=== PATIENT | female | born 1960 | race Caucasian/White ===

== ENCOUNTER 2019-07-31 19:13 | Inpatient (IN) | payer MEDICAID, OTHER ==
[~2019-07-31] VITALS: Ht 172.7 cm; Wt 72.8 kg
[2019-07-31 20:15] LABS: Basophils # (auto) 0.1 uL; Basophils % (auto) 0.7 % (0.0-2.0); Eosinophils # (auto) 0.1 uL; Eosinophils % (auto) 0.8 % (0.0-7.0); Hematocrit 49.7 % (36.0-46.0); Hemoglobin 16.7 g/dL (12.2-16.2); Lymphocytes # (auto) 2.1 uL; Lymphocytes % (auto) 13.7 % (10.0-50.0); Mean Corpuscular Hemoglobin 34.1 pg (28.0-32.0); Mean Corpuscular Hgb Conc. 33.5 g/dL (32.0-36.0); Mean Corpuscular Volume 101.9 fL (80.0-100.0); Monocytes # (auto) 1.4 uL; Monocytes % (auto) 9.2 % (0.0-12.0); Neutrophils # (auto) 11.5 uL; Neutrophils % (auto) 75.6 % (37.0-80.0); Platelet Count (auto) 173 10^3/uL (140-450); Red Blood Cells 4.88 10^6/uL (4.0-5.20); Red Cell Distribution Width 13.1 % (11.8-14.3); White Blood Cell 15.3 10^3/uL (4.4-10.8)
[2019-07-31 20:32] LABS: Albumin 4.2 g/dL (3.4-5.0); Calcium 9.1 mg/dL (8.5-10.1); INR 0.96 (0.9-1.15); Partial Thromboplastin Time 28.5 sec (23.64-32.05); Potassium 3.9 mmol/L (3.5-5.1)
[2019-07-31 20:35] LABS: BUN/Creatinine Ratio 11.3; Bilirubin, Total 0.5 mg/dL (0.2-1.0); Total Protein 8.2 g/dL (6.4-8.2)
[2019-08-01] MEDS ORDERED: cefTRIAXone 1GM/50ML D5W 50 ML IV ONE (01:30)
[2019-08-01] MEDS ORDERED: ONDANSETRON HCL 4 MG/2 ML VIAL IV ONE (01:30)
[2019-08-01] MEDS ORDERED: SODIUM CHLORIDE 0.9% 1,000 ML IV ONE (01:30)
[2019-08-01] MEDS ORDERED: metroNIDAZOLE 500MG/100ML 100 ML IV ONE (01:30)
[2019-08-01] MEDS ORDERED: ACETAMINOPHEN 325 MG TAB PO PRN (01:45)
[2019-08-01] MEDS ORDERED: DOCUSATE SOD 100 MG CAP PO PRN (01:45)
[2019-08-01] MEDS ORDERED: HYDROcodone-ACET 5/325MG TAB PO PRN (01:45)
[2019-08-01] MEDS ORDERED: MORPHINE SULFATE 4 MG/ML SYR/VIAL IV ONE (03:15)
[2019-08-01] MEDS: SODIUM CHLORIDE 0.9% 1,000 ML IV SCH ×2 (03:46→17:19)
[2019-08-01] MEDS ORDERED: MET25T PO (06:25)
[2019-08-01] MEDS ORDERED: ONDA-155 PO (06:25)
[2019-08-01] MEDS ORDERED: DICY10CA12 PO (06:53)
[2019-08-01] MEDS ORDERED: BACLOFEN 10 MG TAB PO PRN (07:00)
[2019-08-01] MEDS ORDERED: LACTULOSE 20Gm/30ML SOLN PO PRN (08:45)
[2019-08-01 09:00] VITALS: BP 123/75
[2019-08-01] MEDS: HYOSCYAMINE SULF 0.125 MG ODT TAB PO PRN ×2 (09:46→14:32)
[2019-08-01] MEDS: HYDROmorphone HCL 2 MG/ML VL IV PRN ×3 (09:48→22:07)
[2019-08-01] MEDS ORDERED: LEVOFLOXACIN 500 MG TAB PO ONE (14:00)
[2019-08-01] MEDS: metroNIDAZOLE 500 MG TAB PO SCH ×2 (14:30→22:01)
[2019-08-01 14:43] LABS: Basophils # (auto) 0 uL; Eosinophils # (auto) 0.1 uL; Hemoglobin 13.7 g/dL (12.2-16.2); Lymphocytes # (auto) 1.1 uL; Monocytes # (auto) 0.8 uL; Neutrophils # (auto) 7.3 uL; Platelet Count (auto) 129 10^3/uL (140-450)
[2019-08-01 14:45] LABS: Basophils % (auto) 0.4 % (0.0-2.0); Eosinophils % (auto) 0.6 % (0.0-7.0); Hematocrit 41.1 % (36.0-46.0); Lymphocytes % (auto) 11.9 % (10.0-50.0); Mean Corpuscular Hemoglobin 34.1 pg (28.0-32.0); Mean Corpuscular Hgb Conc. 33.4 g/dL (32.0-36.0); Mean Corpuscular Volume 102.2 fL (80.0-100.0); Neutrophils % (auto) 78.1 % (37.0-80.0); Red Blood Cells 4.02 10^6/uL (4.0-5.20); White Blood Cell 9.4 10^3/uL (4.4-10.8)
[2019-08-01 15:04] LABS: BUN/Creatinine Ratio 18.5; Calcium 8.1 mg/dL (8.5-10.1); Potassium 3.9 mmol/L (3.5-5.1)
[2019-08-01 17:00] VITALS: BP 131/84
[2019-08-01 21:00] VITALS: BP 137/95
[2019-08-01] MEDS: FAMOTIDINE 20 MG TAB PO SCH (22:01)
[2019-08-01] MEDS: ONDANSETRON HCL 4 MG/2 ML VIAL IV PRN (22:02)
[2019-08-02] MEDS: ONDANSETRON HCL 4 MG/2 ML VIAL IV PRN ×3 (02:59→21:03)
[2019-08-02] MEDS: HYOSCYAMINE SULF 0.125 MG ODT TAB PO PRN ×2 (02:59→22:04)
[2019-08-02 05:00] VITALS: BP 131/95
[2019-08-02] MEDS: metroNIDAZOLE 500 MG TAB PO SCH ×3 (05:31→21:09)
[2019-08-02 07:20] LABS: Basophils # (auto) 0 uL; Lymphocytes # (auto) 1.2 uL; Monocytes # (auto) 0.7 uL; Nucleated Red Blood Cells % 0.1 %
[2019-08-02 07:23] LABS: Basophils % (auto) 0.2 % (0.0-2.0); Eosinophils # (auto) 0.1 uL; Eosinophils % (auto) 1.6 % (0.0-7.0); Hematocrit 39.2 % (36.0-46.0); Hemoglobin 13.2 g/dL (12.2-16.2); Lymphocytes % (auto) 15.9 % (10.0-50.0); Mean Corpuscular Hemoglobin 34.5 pg (28.0-32.0); Mean Corpuscular Hgb Conc. 33.6 g/dL (32.0-36.0); Mean Corpuscular Volume 102.8 fL (80.0-100.0); Monocytes % (auto) 8.9 % (0.0-12.0); Neutrophils # (auto) 5.5 uL; Neutrophils % (auto) 73.4 % (37.0-80.0); Platelet Count (auto) 123 10^3/uL (140-450); Red Blood Cells 3.81 10^6/uL (4.0-5.20); Red Cell Distribution Width 12.9 % (11.8-14.3); White Blood Cell 7.5 10^3/uL (4.4-10.8)
[2019-08-02 07:24] LABS: BUN/Creatinine Ratio 12.2; Calcium 8.2 mg/dL (8.5-10.1); Magnesium 2.1 mg/dL (1.6-2.6); Potassium 3.8 mmol/L (3.5-5.1)
[2019-08-02 07:35] LABS: Urine Bacteria FEW /hpf (None Seen); Urine Blood Negative /uL (Negative); Urine Specific Gravity 1.007 (1.001-1.035); Urine WBC 1 /hpf (0 - 5)
[2019-08-02] MEDS: LEVOFLOXACIN 500 MG TAB PO SCH (09:23)
[2019-08-02] MEDS: FAMOTIDINE 20 MG TAB PO SCH ×2 (09:23→21:09)
[2019-08-02 09:25] VITALS: BP 121/82
[2019-08-02 12:31] VITALS: BP 139/94
[2019-08-02 17:00] VITALS: BP 133/89
[2019-08-02] MEDS: SODIUM CHLORIDE 0.9% 1,000 ML IV SCH (21:11)
[2019-08-02] MEDS: HYDROmorphone HCL 2 MG/ML VL IV PRN (21:11)
[2019-08-02 21:50] VITALS: BP 151/57
[2019-08-03] MEDS: SODIUM CHLORIDE 0.9% 1,000 ML IV SCH ×2 (03:45→23:22)
[2019-08-03 04:55] VITALS: BP 123/86
[2019-08-03] MEDS: metroNIDAZOLE 500 MG TAB PO SCH ×3 (06:00→21:23)
[2019-08-03 08:15] VITALS: BP 126/85
[2019-08-03] MEDS: FAMOTIDINE 20 MG TAB PO SCH ×2 (09:39→21:23)
[2019-08-03] MEDS: LEVOFLOXACIN 500 MG TAB PO SCH (09:39)
[2019-08-03] MEDS: ONDANSETRON HCL 4 MG/2 ML VIAL IV PRN ×3 (10:43→21:22)
[2019-08-03] MEDS ORDERED: GOLYTELY 4L KIT PO ONE (12:00)
[2019-08-03 12:21] VITALS: BP 149/96
[2019-08-03] MEDS: HYOSCYAMINE SULF 0.125 MG ODT TAB PO PRN ×2 (12:48→17:14)
[2019-08-03 16:48] VITALS: BP 128/83
[2019-08-03 22:00] VITALS: BP 131/96
[2019-08-03] MEDS: HYDROmorphone HCL 2 MG/ML VL IV PRN (23:20)
[2019-08-04 05:00] VITALS: BP 147/73
[2019-08-04] MEDS: metroNIDAZOLE 500 MG TAB PO SCH ×3 (06:00→22:31)
[2019-08-04 06:37] VITALS: BP 133/93
[2019-08-04 07:18] LABS: INR 1.04 (0.9-1.15); Partial Thromboplastin Time 28.4 sec (23.64-32.05)
[2019-08-04] MEDS ORDERED: diphenhdrAMINE HCL 50 MG/1 ML VL ONE (08:22)
[2019-08-04] MEDS ORDERED: SODIUM CHLORIDE LOCK 10 ML ONE (08:22)
[2019-08-04 09:00] VITALS: BP 125/85
[2019-08-04] MEDS: LEVOFLOXACIN 500 MG TAB PO SCH (09:06)
[2019-08-04] MEDS: FAMOTIDINE 20 MG TAB PO SCH ×2 (09:06→22:31)
[2019-08-04] MEDS: ONDANSETRON HCL 4 MG/2 ML VIAL IV PRN ×3 (09:07→20:38)
[2019-08-04] MEDS: fentaNYL CITRATE 100 MCG/2 ML VL ONE ×2 (11:07→11:10)
[2019-08-04] MEDS: MIDAZOLAM HCL 5 MG/ML-1ML VIAL ONE ×2 (11:07→11:10)
[2019-08-04] MEDS ORDERED: fentaNYL CITRATE 100 MCG/2 ML VL ONE (11:10)
[2019-08-04] MEDS ORDERED: MIDAZOLAM HCL 5 MG/ML-1ML VIAL ONE (11:10)
[2019-08-04] MEDS: SODIUM CHLORIDE 0.9% 1,000 ML IV SCH (12:22)
[2019-08-04 12:30] VITALS: BP 120/77
[2019-08-04] MEDS: HYDROmorphone HCL 2 MG/ML VL IV PRN (13:34)
[2019-08-04 20:00] VITALS: BP 155/103
[2019-08-04 22:00] VITALS: BP 155/103
[2019-08-05 05:23] VITALS: BP 133/82
[2019-08-05] MEDS: metroNIDAZOLE 500 MG TAB PO SCH (05:25)
[2019-08-05] MEDS: SODIUM CHLORIDE 0.9% 1,000 ML IV SCH (05:45)
[2019-08-05 06:15] LABS: Basophils # (auto) 0 uL; Basophils % (auto) 0.7 % (0.0-2.0); Eosinophils # (auto) 0.2 uL; Eosinophils % (auto) 3.1 % (0.0-7.0); Hematocrit 43.3 % (36.0-46.0); Hemoglobin 14.8 g/dL (12.2-16.2); Lymphocytes # (auto) 1.3 uL; Lymphocytes % (auto) 21.1 % (10.0-50.0); Mean Corpuscular Hemoglobin 34.6 pg (28.0-32.0); Mean Corpuscular Hgb Conc. 34.2 g/dL (32.0-36.0); Mean Corpuscular Volume 101.1 fL (80.0-100.0); Monocytes # (auto) 0.9 uL; Monocytes % (auto) 14.3 % (0.0-12.0); Neutrophils # (auto) 3.6 uL; Neutrophils % (auto) 60.8 % (37.0-80.0); Nucleated Red Blood Cells % 0.1 %; Platelet Count (auto) 161 10^3/uL (140-450); Red Blood Cells 4.29 10^6/uL (4.0-5.20); Red Cell Distribution Width 12.2 % (11.8-14.3)
[2019-08-05 09:00] VITALS: BP 130/93
[2019-08-05] MEDS: FAMOTIDINE 20 MG TAB PO SCH (10:09)
[2019-08-05] MEDS: LEVOFLOXACIN 500 MG TAB PO SCH (10:09)
[2019-08-05] MEDS: ONDANSETRON HCL 4 MG/2 ML VIAL IV PRN (10:09)
[2019-08-05] MEDS ORDERED: SUCCINYLCHOLINE CHLORIDE 20 MG/ML 10ML VIAL IV ONE (11:19)
[2019-08-05] MEDS ORDERED: MIDAZOLAM HCL 1MG/1ML-2 ML VIAL ONE (11:22)
[2019-08-05] MEDS ORDERED: GLYCOPYRROLATE 0.2 MG/ML 1ML VIAL ONE (11:24)
[2019-08-05] MEDS ORDERED: diphenhdrAMINE HCL 50 MG/1 ML VL ONE (11:24)
[2019-08-05] MEDS ORDERED: LIDOCAINE 2% (LOCAL ANESTH.) PF 5ml SDV ONE (11:25)
[2019-08-05] MEDS ORDERED: PROPOFOL 10 MG/ML 20 ML IV ONE (11:25)
[2019-08-05] MEDS ORDERED: fentaNYL CITRATE 100 MCG/2 ML VL ONE (11:31)
[2019-08-05] MEDS ORDERED: hydrALAZINE HCL 20 MG/ML VL ONE (11:39)
[2019-08-05] MEDS ORDERED: LEVO500T21 PO (11:43)
[2019-08-05] MEDS ORDERED: DOCU-94 PO (11:43)
[2019-08-05] MEDS ORDERED: METR500T PO (11:43)
[2019-08-05] MEDS ORDERED: HYDROmorphone HCL 2 MG/ML VL IV PRN (11:45)
[2019-08-05] MEDS ORDERED: ONDANSETRON HCL 4 MG/2 ML VIAL IV PRN (11:45)
[2019-08-05] MEDS ORDERED: NALOXONE HCL 0.4 MG/ML VIAL IV PRN (11:45)
[2019-08-05] MEDS ORDERED: hydrALAZINE HCL 20 MG/ML VL IV PRN (11:45)
[2019-08-05] MEDS ORDERED: METOCLOPRAMIDE HCL 5MG/ml INJ 2ml VIAL IV PRN (11:45)
[2019-08-05] MEDS ORDERED: NEOMYCIN-BACITRACIN-POLYM UNITDOSE PKG TOP OINT TOP SCH (12:00)
[2019-08-05 13:00] VITALS: BP 101/65
== END 2019-08-05 16:15 | disposition home or self-care (01) | DRG 246 ==
LOC: ER 19:19 → OVERFLOW 19:20 → WEST WING 08-01 05:37
PROVIDERS: ADMIT Hospitalist; ATTEND Internal Medicine
PROC: 0DJD8ZZ Inspection of Lower Intestinal Tract, Via Natural or Artificial Opening Endoscopic (ICD-10-PCS; principal; 2019-08-04 11:00)
PROC: 0DBB8ZX Excision of Ileum, Via Natural or Artificial Opening Endoscopic, Diagnostic (ICD-10-PCS; 2019-08-05)
DX: K55.9 Vascular disorder of intestine, unspecified (principal); K50.911 Crohn's disease, unspecified, with rectal bleeding; K62.5 Hemorrhage of anus and rectum; I10 Essential (primary) hypertension; K64.8 Other hemorrhoids; K59.00 Constipation, unspecified; D36.10 Benign neoplasm of peripheral nerves and autonomic nervous system, unspecified; Z90.710 Acquired absence of both cervix and uterus; Z88.5 Allergy status to narcotic agent; B19.20 Unspecified viral hepatitis C without hepatic coma; Z88.1 Allergy status to other antibiotic agents
CPT/HCPCS: 36415; 45378; 45380; 71045; 74176; 80048; 80053; 80074; 81001; 83735; 85025; 85610; 85730; 96365; 96367; 96375; G0378; J0330; J0696; J2001; J2250; J2405; J2704; J3490

== ENCOUNTER 2020-04-10 07:23 | Inpatient (IN) | payer MEDICAID ==
[~2020-04-10] VITALS: Ht 170.2 cm; Wt 70.5 kg
[~2020-04-10 07:23] MED LIST: DICY10CA12 PO; DOCU-94 PO; LEVO500T21 PO; MET25T PO; METR500T PO; ONDA-155 PO
[2020-04-10] MEDS ORDERED: SODIUM CHLORIDE 0.9% 1,000 ML IV ONE (08:04)
[2020-04-10] MEDS ORDERED: SODIUM CHLORIDE 0.9% 500 ML IVB ONE (08:04)
[2020-04-10] MEDS ORDERED: HYDROmorphone HCL 2 MG/ML VL IV ONE ×2 (08:15→12:45)
[2020-04-10 08:18] LABS: Eosinophils # (auto) 0.1 10 ^3/uL (0-0.8); Lymphocytes # (auto) 1.4 10 ^3/uL (0.4-5.4); Monocytes # (auto) 0.9 10 ^3/uL (0-1.3); Red Blood Cells 4.78 10^6/uL (4.0-5.20); Red Cell Distribution Width 12.8 % (11.8-14.3)
[2020-04-10 08:21] LABS: Basophils # (auto) 0.1 10 ^3/uL (0-0.2); Basophils % (auto) 0.7 % (0.0-2.0); Eosinophils % (auto) 1.3 % (0.0-7.0); Hemoglobin 16.8 g/dL (12.2-16.2); Lymphocytes % (auto) 13.5 % (10.0-50.0); Mean Corpuscular Hemoglobin 35.1 pg (28.0-32.0); Mean Corpuscular Hgb Conc. 34.2 g/dL (32.0-36.0); Mean Corpuscular Volume 102.4 fL (80.0-100.0); Monocytes % (auto) 8.7 % (0.0-12.0); Neutrophils % (auto) 75.8 % (37.0-80.0); Platelet Count (auto) 208 10^3/uL (140-450); White Blood Cell 10.5 10^3/uL (4.4-10.8)
[2020-04-10 08:31] LABS: INR 0.97 (0.9-1.15); Partial Thromboplastin Time 26.2 sec (23.0-31.2)
[2020-04-10 08:44] LABS: Alanine Aminotransferase 36 U/L (13-56); Albumin 4.1 g/dL (3.4-5.0); Anion Gap 9 (5-15); Aspartate Aminotransferase 39 U/L (15-37); BUN/Creatinine Ratio 12.3; Blood Urea Nitrogen 8 mg/dL (7-18); Calcium 9.1 mg/dL (8.5-10.1); Carbon Dioxide 26 mmol/L (21-32); Chloride 107 mmol/L (98-107); GFR African American 120 mL/min; GFR Non-African American 99 mL/min; Glucose 96 mg/dL (74-106); Potassium 3.3 mmol/L (3.5-5.1); Sodium 142 mmol/L (136-145)
[2020-04-10] MEDS: PROMETHAZINE HCL 25 MG/ML 1ML IV PRN ×2 (08:44→21:40)
[2020-04-10 08:49] LABS: Alkaline Phosphatase 73 U/L (45-117); Bilirubin, Total 0.4 mg/dL (0.2-1.0); Total Protein 7.7 g/dL (6.4-8.2)
[2020-04-10] MEDS ORDERED: IOHEXOL 300 MG/ML 100ML BOTTLE IJ ONE (09:17)
[2020-04-10 10:08] LABS: Magnesium 1.9 mg/dL (1.6-2.6)
[2020-04-10 10:50] LABS: Urine Bacteria NONE SEEN /hpf (None Seen); Urine Blood Negative /uL (Negative); Urine Mucus FEW (None Seen); Urine WBC 5 /hpf (0 - 5)
[2020-04-10] MEDS ORDERED: LACTATED RINGER'S 1,000 ML IV ONE (12:30)
[2020-04-10] MEDS ORDERED: NITROGLYCERIN 0.4 MG SL TAB SL PRN (12:30)
[2020-04-10] MEDS ORDERED: MORPHINE SULF INJ 2 MG/ML SYRINGE 1ML IV PRN ×2 (12:30→13:30)
[2020-04-10] MEDS ORDERED: POTASSIUM CHL 20MEQ/100ML 100 ML IV ONE (12:45)
[2020-04-10] MEDS ORDERED: LORazepam 0.5 MG TAB PO PRN (13:30)
[2020-04-10] MEDS ORDERED: DOCUSATE SOD 100 MG CAP PO PRN (13:30)
[2020-04-10] MEDS ORDERED: ALUM & MAG HYDROX-SIMETH LIQ(MAALOX) 30 ML PO PRN (13:30)
[2020-04-10] MEDS ORDERED: ALBUTEROL SULF HFA 90MCG INH 200DOSE IN SCH (14:00)
[2020-04-10 14:37] LABS: Cholesterol 197 mg/dL (< 200); HDL Cholesterol 66 mg/dL (40-59); LDL Cholesterol 119 mg/dL (< 100); Triglycerides 80 mg/dL (< 150)
[2020-04-10 14:40] VITALS: BP 144/88
[2020-04-10] MEDS ORDERED: ATEN50TA PO (14:57)
[2020-04-10] MEDS ORDERED: PRAV20TA3 PO (14:57)
[2020-04-10] MEDS ORDERED: OMEP-260 PO (14:57)
[2020-04-10] MEDS ORDERED: ALBUTEROL SULF 2.5 MG/0.5ML(0.5%) NEB SOLN NEB PRN (15:00)
[2020-04-10 15:26] VITALS: BP 141/82
[2020-04-10 17:00] VITALS: BP 132/72
[2020-04-10] MEDS: SODIUM CHLORIDE 0.9% 1,000 ML IV SCH (17:12)
[2020-04-10] MEDS: HYDROmorphone HCL 2 MG/ML VL IV PRN ×2 (17:13→21:40)
[2020-04-10] MEDS: ONDANSETRON HCL 4 MG/2 ML VIAL IV PRN (17:32)
[2020-04-10 20:00] VITALS: BP 133/72
[2020-04-10 20:23] LABS: Amphetamine Screen, Urine NEGATIVE (NEGATIVE); Barbiturate Scree,Urine NEGATIVE (NEGATIVE); Benzodiazephine Screen, Urine NEGATIVE (NEGATIVE); Cannabinoid Screen, Urine NEGATIVE (NEGATIVE); Cocaine Screen, Urine NEGATIVE (NEGATIVE); Opiate Scree,Urine NEGATIVE (NEGATIVE); Phencyclidine Screen, Urine NEGATIVE (NEGATIVE)
[2020-04-10] MEDS: MONTELUKAST SODIUM 10 MG TAB PO SCH (21:38)
[2020-04-10] MEDS: ATORVASTATIN 20 MG TAB PO SCH (21:38)
[2020-04-10] MEDS: ATENOLOL 25 MG TAB PO SCH (21:52)
[2020-04-10 22:00] VITALS: BP 133/72
[2020-04-10] MEDS: BUDESONIDE (INHALATION) 0.5 MG/2 ML NEB NEB SCH (23:40)
[2020-04-11] MEDS: PROMETHAZINE HCL 25 MG/ML 1ML IV PRN ×2 (04:17→09:24)
[2020-04-11] MEDS: HYDROmorphone HCL 2 MG/ML VL IV PRN ×4 (04:17→21:10)
[2020-04-11 05:00] VITALS: BP 142/88
[2020-04-11 06:01] LABS: Basophils # (auto) 0.1 10 ^3/uL (0-0.2); Eosinophils # (auto) 0.2 10 ^3/uL (0-0.8); White Blood Cell 7.1 10^3/uL (4.4-10.8)
[2020-04-11 06:04] LABS: Basophils % (auto) 0.7 % (0.0-2.0); Eosinophils % (auto) 2.6 % (0.0-7.0); Hematocrit 41.2 % (36.0-46.0); Lymphocytes # (auto) 1.8 10 ^3/uL (0.4-5.4); Lymphocytes % (auto) 24.8 % (10.0-50.0); Mean Corpuscular Hemoglobin 34.9 pg (28.0-32.0); Mean Corpuscular Volume 102.7 fL (80.0-100.0); Monocytes # (auto) 0.8 10 ^3/uL (0-1.3); Monocytes % (auto) 10.7 % (0.0-12.0); Neutrophils # (auto) 4.3 10 ^3/uL (1.6-8.6); Neutrophils % (auto) 61.2 % (37.0-80.0); Platelet Count (auto) 161 10^3/uL (140-450); Red Blood Cells 4.01 10^6/uL (4.0-5.20); Red Cell Distribution Width 12.5 % (11.8-14.3)
[2020-04-11] MEDS: SODIUM CHLORIDE 0.9% 1,000 ML IV SCH ×2 (06:15→22:44)
[2020-04-11 08:37] VITALS: BP 132/82
[2020-04-11] MEDS: POTASSIUM CHL 20 Meq TABLET PO SCH (09:26)
[2020-04-11] MEDS: ATENOLOL 25 MG TAB PO SCH ×2 (09:27→22:35)
[2020-04-11] MEDS: PANTOPRAZOLE 40 MG TAB PO SCH (09:27)
[2020-04-11] MEDS: BUDESONIDE (INHALATION) 0.5 MG/2 ML NEB NEB SCH (10:44)
[2020-04-11] MEDS ORDERED: GOLYTELY 4L KIT PO ONE (11:00)
[2020-04-11 12:48] VITALS: BP 109/82
[2020-04-11] MEDS: ONDANSETRON HCL 4 MG/2 ML VIAL IV PRN ×2 (16:58→21:11)
[2020-04-11 17:16] VITALS: BP 139/87
[2020-04-11 22:00] VITALS: BP 143/86
[2020-04-11] MEDS: MONTELUKAST SODIUM 10 MG TAB PO SCH (22:35)
[2020-04-11] MEDS: ATORVASTATIN 20 MG TAB PO SCH (22:35)
[2020-04-12] MEDS: HYDROmorphone HCL 2 MG/ML VL IV PRN ×4 (03:35→21:56)
[2020-04-12] MEDS: ONDANSETRON HCL 4 MG/2 ML VIAL IV PRN ×4 (03:36→21:56)
[2020-04-12 05:00] VITALS: BP 143/83
[2020-04-12 06:14] LABS: Basophils # (auto) 0 10 ^3/uL (0-0.2); Basophils % (auto) 0.7 % (0.0-2.0); Eosinophils # (auto) 0.2 10 ^3/uL (0-0.8); Lymphocytes # (auto) 1.4 10 ^3/uL (0.4-5.4)
[2020-04-12 06:16] LABS: Hematocrit 40.7 % (36.0-46.0); Hemoglobin 13.8 g/dL (12.2-16.2); Lymphocytes % (auto) 23.6 % (10.0-50.0); Mean Corpuscular Hemoglobin 34.8 pg (28.0-32.0); Mean Corpuscular Volume 102.5 fL (80.0-100.0); Monocytes # (auto) 0.6 10 ^3/uL (0-1.3); Monocytes % (auto) 10.5 % (0.0-12.0); Neutrophils # (auto) 3.8 10 ^3/uL (1.6-8.6); Neutrophils % (auto) 62.2 % (37.0-80.0); Nucleated Red Blood Cells % 0.1 %; Platelet Count (auto) 155 10^3/uL (140-450); Red Blood Cells 3.97 10^6/uL (4.0-5.20); Red Cell Distribution Width 12.5 % (11.8-14.3); White Blood Cell 6.1 10^3/uL (4.4-10.8)
[2020-04-12 06:34] LABS: Potassium 3.5 mmol/L (3.5-5.1)
[2020-04-12 06:40] LABS: BUN/Creatinine Ratio 11.5; Calcium 8.6 mg/dL (8.5-10.1)
[2020-04-12 09:00] VITALS: BP 152/87
[2020-04-12] MEDS: PANTOPRAZOLE 40 MG TAB PO SCH ×2 (09:00→22:00)
[2020-04-12] MEDS: POTASSIUM CHL 20 Meq TABLET PO SCH (09:00)
[2020-04-12] MEDS: ATENOLOL 25 MG TAB PO SCH ×2 (09:01→21:59)
[2020-04-12] MEDS ORDERED: MIDAZOLAM HCL 1MG/1ML-2 ML VIAL ONE (10:40)
[2020-04-12] MEDS ORDERED: fentaNYL CITRATE 100 MCG/2 ML VL ONE (10:40)
[2020-04-12] MEDS ORDERED: SODIUM CHLORIDE LOCK 10 ML ONE (10:40)
[2020-04-12] MEDS ORDERED: ONDANSETRON HCL 4 MG/2 ML VIAL ONE (10:40)
[2020-04-12] MEDS ORDERED: PROPOFOL 10 MG/ML 20 ML IV ONE (10:40)
[2020-04-12] MEDS: cefTRIAXone 1GM/50ML D5W 50 ML IV SCH (12:45)
[2020-04-12] MEDS: SODIUM CHLORIDE 0.9% 1,000 ML IV SCH (15:03)
[2020-04-12 17:00] VITALS: BP 136/76
[2020-04-12] MEDS: MONTELUKAST SODIUM 10 MG TAB PO SCH (21:58)
[2020-04-12 22:00] VITALS: BP 142/92
[2020-04-12] MEDS: ATORVASTATIN 20 MG TAB PO SCH (22:00)
[2020-04-13] MEDS: ONDANSETRON HCL 4 MG/2 ML VIAL IV PRN ×4 (04:03→14:05)
[2020-04-13] MEDS: HYDROmorphone HCL 2 MG/ML VL IV PRN ×2 (04:03→08:51)
[2020-04-13 05:00] VITALS: BP 133/75
[2020-04-13 07:20] LABS: Basophils # (auto) 0 10 ^3/uL (0-0.2); Eosinophils # (auto) 0.2 10 ^3/uL (0-0.8); Hematocrit 41.6 % (36.0-46.0); Lymphocytes # (auto) 1.4 10 ^3/uL (0.4-5.4); Monocytes # (auto) 0.7 10 ^3/uL (0-1.3); Neutrophils # (auto) 4.2 10 ^3/uL (1.6-8.6); Red Blood Cells 4.01 10^6/uL (4.0-5.20); White Blood Cell 6.6 10^3/uL (4.4-10.8)
[2020-04-13 07:22] LABS: Basophils % (auto) 0.7 % (0.0-2.0); Eosinophils % (auto) 2.8 % (0.0-7.0); Hemoglobin 13.6 g/dL (12.2-16.2); Lymphocytes % (auto) 21.7 % (10.0-50.0); Mean Corpuscular Hemoglobin 33.9 pg (28.0-32.0); Mean Corpuscular Hgb Conc. 32.7 g/dL (32.0-36.0); Mean Corpuscular Volume 103.7 fL (80.0-100.0); Monocytes % (auto) 10.8 % (0.0-12.0); Platelet Count (auto) 164 10^3/uL (140-450); Red Cell Distribution Width 12.3 % (11.8-14.3)
[2020-04-13 07:36] LABS: BUN/Creatinine Ratio 7.5; Potassium 3.6 mmol/L (3.5-5.1)
[2020-04-13] MEDS: SODIUM CHLORIDE 0.9% 1,000 ML IV SCH (08:05)
[2020-04-13] MEDS: cefTRIAXone 1GM/50ML D5W 50 ML IV SCH (08:50)
[2020-04-13] MEDS: PANTOPRAZOLE 40 MG TAB PO SCH (08:50)
[2020-04-13] MEDS: POTASSIUM CHL 20 Meq TABLET PO SCH (08:50)
[2020-04-13] MEDS: PROMETHAZINE HCL 25 MG/ML 1ML IV PRN (08:52)
[2020-04-13 09:00] VITALS: BP 132/87
[2020-04-13] MEDS ORDERED: BACLOFEN 10 MG TAB PO PRN (10:00)
[2020-04-13 13:00] VITALS: BP 139/79
[2020-04-13] MEDS: ATENOLOL 25 MG TAB PO SCH (14:04)
== END 2020-04-13 12:45 | disposition home or self-care (01) | DRG 246 ==
LOC: ER 07:23 → TELE 07:24 → TELE-CENTR 14:30 → CENTRAL 04-11 19:41
PROVIDERS: ADMIT Hospitalist; ATTEND Internal Medicine Pulmonary Disease
PROC: 0DB68ZX Excision of Stomach, Via Natural or Artificial Opening Endoscopic, Diagnostic (ICD-10-PCS; principal; 2020-04-12 11:54)
PROC: 0DBQ8ZX Excision of Anus, Via Natural or Artificial Opening Endoscopic, Diagnostic (ICD-10-PCS; 2020-04-12 11:54)
DX: K55.9 Vascular disorder of intestine, unspecified (principal); E87.6 Hypokalemia; D75.89 Other specified diseases of blood and blood-forming organs; K62.5 Hemorrhage of anus and rectum; R11.2 Nausea with vomiting, unspecified; I10 Essential (primary) hypertension; K59.00 Constipation, unspecified; K64.8 Other hemorrhoids; K29.80 Duodenitis without bleeding; J44.9 Chronic obstructive pulmonary disease, unspecified; E78.5 Hyperlipidemia, unspecified; K76.0 Fatty (change of) liver, not elsewhere classified; N39.0 Urinary tract infection, site not specified; K21.9 Gastro-esophageal reflux disease without esophagitis; K29.70 Gastritis, unspecified, without bleeding; Z82.49 Family history of ischemic heart disease and other diseases of the circulatory system; Z83.6 Family history of other diseases of the respiratory system; Z82.3 Family history of stroke; Z79.899 Other long term (current) drug therapy; Z87.19 Personal history of other diseases of the digestive system; Z90.710 Acquired absence of both cervix and uterus; Z86.19 Personal history of other infectious and parasitic diseases; Z88.5 Allergy status to narcotic agent; Z88.8 Allergy status to other drugs, medicaments and biological substances; Z79.891 Long term (current) use of opiate analgesic; Z79.01 Long term (current) use of anticoagulants
CPT/HCPCS: 36415; 43239; 45380; 71046; 74177; 80048; 80053; 80061; 80307; 81001; 83036; 83690; 83735; 84484; 85025; 85610; 85730; 86850; 86900; 86901; 87040; 87086; 87088; 87186; 94640; G0378; J0696; J2250; J2405; J2704; J3480

== ENCOUNTER 2020-05-06 13:56 | Emergency (ER) | payer MEDICAID ==
[~2020-05-06] VITALS: Ht 170.2 cm; Wt 68.0 kg
[~2020-05-06 13:56] MED LIST changes: +ATEN50TA PO; -DOCU-94 PO; -LEVO500T21 PO; -MET25T PO; -METR500T PO; +OMEP-260 PO; -ONDA-155 PO; +PRAV20TA3 PO
[2020-05-06 14:10] VITALS: BP 119/92
== END 2020-05-06 14:49 | disposition left against medical advice (07) ==
LOC: ER 13:56
DX: M79.89 Other specified soft tissue disorders (principal); Z53.21 Procedure and treatment not carried out due to patient leaving prior to being seen by health care provider

== ENCOUNTER 2021-04-03 07:47 | Emergency (ER) | payer MEDICAID ==
[~2021-04-03] VITALS: Ht 170.2 cm; Wt 68.0 kg
[2021-04-03 07:49] VITALS: BP 145/100
[2021-04-03 08:41] LABS: Urine Bacteria FEW /hpf (None Seen); Urine Blood Negative /uL (Negative); Urine Hyaline Cast MOD /lpf (0 - 2); Urine Mucus FEW (None Seen); Urine Specific Gravity 1.029 (1.001-1.035); Urine WBC 6 /hpf (0 - 5)
[2021-04-03 08:54] LABS: Eosinophils # (auto) 0.2 10 ^3/uL (0-0.8); Hemoglobin 15.7 g/dL (12.2-16.2); Lymphocytes # (auto) 1.4 10 ^3/uL (0.4-5.4); Monocytes # (auto) 0.8 10 ^3/uL (0-1.3); Neutrophils # (auto) 5.1 10 ^3/uL (1.6-8.6); White Blood Cell 7.5 10^3/uL (4.4-10.8)
[2021-04-03 08:55] LABS: Basophils # (auto) 0 10 ^3/uL (0-0.2); Basophils % (auto) 0.4 % (0.0-2.0); Eosinophils % (auto) 2.1 % (0.0-7.0); Hematocrit 46.8 % (36.0-46.0); Lymphocytes % (auto) 18.8 % (10.0-50.0); Mean Corpuscular Hemoglobin 35.2 pg (28.0-32.0); Mean Corpuscular Hgb Conc. 33.6 g/dL (32.0-36.0); Mean Corpuscular Volume 104.5 fL (80.0-100.0); Monocytes % (auto) 11.2 % (0.0-12.0); Neutrophils % (auto) 67.5 % (37.0-80.0); Red Blood Cells 4.48 10^6/uL (4.0-5.20)
[2021-04-03 09:12] LABS: Albumin 3.8 g/dL (3.4-5.0); BUN/Creatinine Ratio 10.4; Calcium 9.1 mg/dL (8.5-10.1); Potassium 3.3 mmol/L (3.5-5.1)
[2021-04-03 09:15] LABS: Bilirubin, Total 0.5 mg/dL (0.2-1.0); Total Protein 7.5 g/dL (6.4-8.2)
== END 2021-04-03 10:06 | disposition left against medical advice (07) ==
LOC: ER 07:47
DX: R11.2 Nausea with vomiting, unspecified (principal); Z53.21 Procedure and treatment not carried out due to patient leaving prior to being seen by health care provider
CPT/HCPCS: 36415; 80053; 81001; 85025

== ENCOUNTER 2022-06-07 11:02 | Emergency (ER) | payer MEDICAID ==
[~2022-06-07] VITALS: Ht 170.2 cm; Wt 63.0 kg
[2022-06-07] MEDS ORDERED: SODIUM CHLORIDE 0.9% 1,000 ML IVB ONE (12:00)
[2022-06-07 12:20] LABS: Basophils # (auto) 0.1 10 ^3/uL (0-0.2); Lymphocytes # (auto) 1.6 10 ^3/uL (0.4-5.4); Nucleated Red Blood Cells % 0.1 %
[2022-06-07 12:23] LABS: INR 1.03 (0.9-1.15)
[2022-06-07 12:24] LABS: Basophils % (auto) 0.9 % (0.0-2.0); Eosinophils # (auto) 0.2 10 ^3/uL (0-0.8); Eosinophils % (auto) 1.4 % (0.0-7.0); Hematocrit 48.8 % (36.0-46.0); Hemoglobin 16.4 g/dL (12.2-16.2); Mean Corpuscular Hemoglobin 37.7 pg (28.0-32.0); Mean Corpuscular Hgb Conc. 33.6 g/dL (32.0-36.0); Monocytes # (auto) 0.6 10 ^3/uL (0-1.3); Neutrophils # (auto) 8.1 10 ^3/uL (1.6-8.6); Neutrophils % (auto) 76.7 % (37.0-80.0); Red Blood Cells 4.35 10^6/uL (4.0-5.20); Red Cell Distribution Width 13.9 % (11.8-14.3); White Blood Cell 10.6 10^3/uL (4.4-10.8)
[2022-06-07 12:27] LABS: Albumin 4.4 g/dL (3.4-5.0); BUN/Creatinine Ratio 11.1; Calcium 9.3 mg/dL (8.5-10.1); Potassium 3.3 mmol/L (3.5-5.1)
[2022-06-07 12:30] LABS: Bilirubin, Total 0.7 mg/dL (0.2-1.0); Total Protein 8.2 g/dL (6.4-8.2)
[2022-06-07] MEDS ORDERED: ONDANSETRON ODT 4 MG TAB PO ONE (13:00)
[2022-06-07] MEDS ORDERED: LOPERAMIDE HCL 2 MG CAP/TAB PO ONE (13:00)
[2022-06-07] MEDS ORDERED: IOHEXOL 300 MG/ML 100ML BOTTLE IJ ONE (13:11)
[2022-06-07 14:00] VITALS: BP 138/82
[2022-06-07] MEDS ORDERED: LOPE2CAP PO (14:06)
[2022-06-07] MEDS ORDERED: ONDA-144 PO (14:06)
[2022-06-07] MEDS ORDERED: HYD1TP TOP (14:06)
== END 2022-06-07 14:33 | disposition home or self-care (01) ==
LOC: ER 11:02
DX: R11.2 Nausea with vomiting, unspecified (principal); R19.7 Diarrhea, unspecified; I10 Essential (primary) hypertension; F17.210 Nicotine dependence, cigarettes, uncomplicated; Z90.710 Acquired absence of both cervix and uterus; Z79.899 Other long term (current) drug therapy; Z88.5 Allergy status to narcotic agent
CPT/HCPCS: 36415; 80053; 83605; 83690; 85025; 85610; 86850; 86900; 86901; 96360; 99283; J7030; Q0162

== ENCOUNTER 2023-05-23 09:55 | Emergency (ER) | payer MEDICAID, MEDICARE, OTHER ==
[~2023-05-23] VITALS: Ht 170.2 cm; Wt 55.0 kg
[~2023-05-23 09:55] MED LIST changes: +HYD1TP TOP; +LOPE2CAP PO; -OMEP-260 PO; +OMEP1CAP70 PO; +ONDA-144 PO
[2023-05-23 10:05] VITALS: BP 118/82; RESP 20; O2SAT 99
[2023-05-23] MEDS ORDERED: SODIUM CHLORIDE 0.9% 1,000 ML IV ONE (10:15)
[2023-05-23] MEDS ORDERED: DICYCLOMINE HCL (10MG/ML) 2 ML AMPULE IM ONE (10:15)
[2023-05-23] MEDS ORDERED: ONDANSETRON HCL 4 MG/2 ML VIAL IV ONE (10:15)
[2023-05-23 10:33] VITALS: PULSE 18
[2023-05-23 10:44] LABS: Eosinophils # (auto) 0.1 10 ^3/uL (0-0.8); Hemoglobin 15.6 g/dL (12.2-16.2); Monocytes # (auto) 0.9 10 ^3/uL (0-1.3); Neutrophils # (auto) 8.8 10 ^3/uL (1.6-8.6); White Blood Cell 11.3 10^3/uL (4.4-10.8)
[2023-05-23 10:45] LABS: Basophils # (auto) 0 10 ^3/uL (0-0.2); Basophils % (auto) 0.4 % (0.0-2.0); Eosinophils % (auto) 1.1 % (0.0-7.0); Hematocrit 46.3 % (36.0-46.0); Lymphocytes # (auto) 1.5 10 ^3/uL (0.4-5.4); Lymphocytes % (auto) 12.9 % (10.0-50.0); Mean Corpuscular Hemoglobin 37.9 pg (28.0-32.0); Mean Corpuscular Hgb Conc. 33.7 g/dL (32.0-36.0); Mean Corpuscular Volume 112.7 fL (80.0-100.0); Monocytes % (auto) 8.1 % (0.0-12.0); Neutrophils % (auto) 77.5 % (37.0-80.0); Red Blood Cells 4.11 10^6/uL (4.0-5.20)
[2023-05-23 11:16] LABS: Albumin 4.6 g/dL (3.2-4.8); Alkaline Phosphatase 78 U/L (46-116); Anion Gap 14 (5-15); Aspartate Aminotransferase 83 U/L (13-40); Bilirubin, Total 1.2 mg/dL (0.2-1.0); Calcium 9.6 mg/dL (8.7-10.4); Carbon Dioxide 22 mmol/L (20-30); Chloride 104 mmol/L (98-107); Glucose 95 mg/dL (74-106); Sodium 140 mmol/L (136-145); Total Protein 7.3 g/dL (5.7-8.2)
[2023-05-23 11:29] LABS: Potassium 4.4 mmol/L (3.5-5.1)
[2023-05-23 11:30] LABS: Alanine Aminotransferase 39 U/L (7-40)
[2023-05-23 11:32] LABS: BUN/Creatinine Ratio 13.4 (10.0-20.0); Blood Urea Nitrogen 13 mg/dL (9-23); Lipase 44 U/L (12-53)
== END 2023-05-23 11:40 | disposition left against medical advice (07) ==
LOC: ER 09:55
DX: K52.9 Noninfective gastroenteritis and colitis, unspecified (principal); R10.84 Generalized abdominal pain; I10 Essential (primary) hypertension; F17.210 Nicotine dependence, cigarettes, uncomplicated; Z90.710 Acquired absence of both cervix and uterus; Z88.8 Allergy status to other drugs, medicaments and biological substances; Z79.1 Long term (current) use of non-steroidal anti-inflammatories (NSAID); Z79.899 Other long term (current) drug therapy
CPT/HCPCS: 36415; 71045; 74176; 80053; 82962; 83690; 84484; 85025; 87040; 93005; 96360; 96372; 99285; J0500; J7030; J2405